=== PATIENT | male | born 1990 | race Caucasian/White ===

== ENCOUNTER 2018-07-16 10:42 | Emergency (ER) | payer OTHER ==
[~2018-07-16] VITALS: Ht 180.3 cm; Wt 93.2 kg
[2018-07-16] MEDS ORDERED: NS 1,000 ML IV ONE (11:15)
[2018-07-16] MEDS ORDERED: KETOROLAC 30 MG/ML VIAL (J1885) IV ONE (11:15)
[2018-07-16 12:01] LABS: BASO % 0.1 % (0.0-1.0); EOS % 0.1 % (0.0-3.0); HEMATOCRIT 45.7 % (42.0-52.0); HEMOGLOBIN 15.8 g/dl (13.5-17.5); LYMPH # 1.5 10^3/uL (1.5-6.5); LYMPH % 19.6 % (24.0-44.0); MEAN CORPUSCULAR HEMOGLOBIN 28.6 pg (27.0-33.0); MEAN CORPUSCULAR HGB CONC 34.6 g/dl (32.0-36.5); MEAN CORPUSCULAR VOLUME 82.8 fl (80.0-96.0); MONO # 0.8 10^3/uL (0.0-0.8); MONO % 9.5 % (0.0-5.0); NEUTROPHILS # 5.5 10^3/uL (1.8-7.7); NEUTROPHILS % 70.4 % (36.0-66.0); PLATELET COUNT, AUTOMATED 206 10^3/uL (150-450); RED BLOOD COUNT 5.52 10^6/uL (4.30-6.10); WHITE BLOOD COUNT 7.9 10^3/uL (4.0-10.0)
--- NOTE | 2018-07-16 12:02 | REP ---
CT ABDOMEN AND PELVIS WITHOUT CONTRAST: 07/16/2018. Clinical history: Left flank pain. Findings: No prior study. Renal stone protocol utilized. CT abdomen: Lung bases are clear. Heart not enlarged. There is no pericardial thickening or effusion. Aorta is normal. The liver, spleen, gallbladder, pancreas, adrenal glands, stomach and the small bowel loops were unremarkable. Kidneys show no stone, hydronephrosis, cyst or solid mass. No perinephric fluid. Ureters unremarkable. The right, transverse colon and flexures are normal. There are a few diverticula in the left colon . There is pericolonic inflammatory change with edema and fluid in the peritoneal gutter adjacent to the left colon from diverticulitis. Inflammatory changes extend for least 11 cm. I do not see definite perforation. There is air within the small diverticula off the colon. No fluid along the right peritoneal gutter. The bones are intact without acute finding in the lumbar, lower thoracic spine or the associated ribs. CT pelvis: The bony sacrum, SI joints, pelvis, hips and ischia were unremarkable. Bladder without wall thickening, mass or stone. No distal ureteral dilatation or stone. The sigmoid and rectum are without any acute finding. I see no pelvic free fluid, adenopathy or mass. Cecum and appendix are normal. There is no ventral or inguinal hernia. Impression: 1. Acute diverticulitis with pericolonic inflammatory change and some fluid in the peritoneal gutter in the left colon for a length of about 11 cm. I do not see definite perforation, abscess or free air. 2. There is no other finding in the abdomen or pelvis. Specifically, no renal, ureteral or bladder stone. No hydronephrosis or hydroureter. Electronically Signed by Louis Poe MD 07/16/2018 05:49 P
[2018-07-16] MEDS ORDERED: MORPHINE 4 MG/ML 1ML VIAL/SYRINGE (J2270) IV ONE (12:30)
[2018-07-16 12:35] LABS: ALBUMIN 4.2 GM/DL (3.2-5.2); ALT/SGPT 20 U/L (12-78); AMYLASE 55 U/L (25-115); BILIRUBIN,DIRECT 0.3 MG/DL (0.0-0.2); BLOOD UREA NITROGEN 9 MG/DL (7-18); CALCIUM LEVEL 9.4 MG/DL (8.5-10.1); CARBON DIOXIDE LEVEL 33 MEQ/L (21-32); CHLORIDE LEVEL 102 MEQ/L (98-107); CREATININE FOR GFR 1.16 MG/DL (0.70-1.30); GLOMERULAR FILTRATION RATE > 60.0 (>60); GLUCOSE, FASTING 101 MG/DL (70-100); LIPASE 64 U/L (73-393); POTASSIUM SERUM 4.4 MEQ/L (3.5-5.1); SODIUM LEVEL 139 MEQ/L (136-145); TOTAL PROTEIN 7.5 GM/DL (6.4-8.2)
[2018-07-16] MEDS ORDERED: ONDA4TAB6 PO (13:40)
[2018-07-16] MEDS ORDERED: CIPR-249 PO (13:40)
[2018-07-16] MEDS ORDERED: FLAG500T PO (13:40)
[2018-07-16] MEDS ORDERED: NORCOTAB PO (13:41)
[2018-07-16 13:43] VITALS: BP 136/79
--- NOTE | 2018-07-16 14:02 | REP ---
SCROTAL ULTRASOUND: 07/16/2018. Clinical history: Left testicular pain. Abdominal pain. CT showed left-sided diverticulitis. Findings: The right testis is 5 x 2.9 x 3.1 cm giving a calculated volume 23.5 mL. It is homogeneous in echotexture and without cyst, mass or calcification. Doppler tracing shows resistive index of 0.64 and normal blood flow. The left testis is 5 x 3.2 x 3.4 cm with a calculated volume of 28.5 mL. It also is homogeneous in echotexture without mass, cyst or calcification. The epididymal head has a CC diameter of 7 mm on the right side. This is an epididymal head cyst 4 x 4 mm. The left epididymal head measures 7 mm in CC diameter without cyst. There are small bilateral hydroceles. The scrotal wall thickness is 3 mm bilaterally. Prominent veins lateral to the left testicle. Impression: 1. Bilateral normal appearing testes with normal blood flow in and around, no torsion. 2. Small bilateral hydroceles. 3. 4 mm epididymal head cyst on the right, none on the left. 4. Small varicocele on the left. Electronically Signed by Louis Poe MD 07/16/2018 05:52 P
--- NOTE | 2018-07-22 19:40 | ED PDOC ---
Post-Departure Follow-Up bryan lopez faxed formal report of ct abd/p for fu Jennifer Méndez MD Jul 22, 2018 19:40
--- NOTE | 2018-07-22 19:44 | ED PDOC ---
Post-Departure Follow-Up ft kodi faxed formal report of scrotal us for fu Jennifer Méndez MD Jul 22, 2018 19:44
== END 2018-07-16 13:59 | disposition home or self-care (01) ==
LOC: M ED 10:42
DX: K57.92 Diverticulitis of intestine, part unspecified, without perforation or abscess without bleeding (principal); N43.3 Hydrocele, unspecified; N50.3 Cyst of epididymis; I86.1 Scrotal varices
CPT/HCPCS: 36415; 74176; 76870; 80048; 80076; 81001; 82150; 83690; 85025; 93976; 96374; 96375; 99284; J1885; J2270

== ENCOUNTER 2020-05-05 06:09 | Day surgery (SDC) | payer OTHER ==
[~2020-05-05] VITALS: Ht 180.3 cm; Wt 99.8 kg
[~2020-05-05 06:09] MED LIST: CIPR-249 PO; CLAR10CA3 PO; FLAG500T PO; HYDR-3715 PO; LIDOCAINE 1% MDV 20ML VIAL SQ PRN; ONDA4TAB6 PO
[2020-05-05] MEDS ORDERED: ceFAZolin SOD 2 GM in IV 1 EA IV ONE (07:00)
[2020-05-05] MEDS ORDERED: LR 1,000 ML IV ONE (07:00)
[2020-05-05] MEDS ORDERED: LIDOCAINE 1% SDV 30ML VIAL As Ordered ONE (07:08)
[2020-05-05] MEDS ORDERED: BUPIVACAINE HCL 0.5% 30 ML VIAL As Ordered ONE (07:11)
[2020-05-05] MEDS ORDERED: LIDOCAINE 2% 100MG/5ML SDV (FOR ANES.) As Ordered ONE (07:21)
[2020-05-05] MEDS ORDERED: propofoL 200 MG/20 ML VIAL As Ordered ONE ×2 (07:21→08:29)
[2020-05-05] MEDS ORDERED: fentaNYL 100 MCG/2 ML INJECTION (J3010) As Ordered ONE (07:22)
[2020-05-05] MEDS ORDERED: MIDAZOLAM INJ 2MG/2ML VIAL (J2250 PER 1MG) As Ordered ONE ×2 (07:22→07:55)
[2020-05-05] MEDS ORDERED: dexameTHASONE 4 MG/ML 1ML VIAL (J1100 PER 1MG) As Ordered ONE (07:23)
[2020-05-05] MEDS ORDERED: KETAMINE HCL 200 MG/20 ML VIAL As Ordered ONE (07:45)
[2020-05-05] MEDS ORDERED: ONDANSETRON 4MG/2ML VIAL As Ordered ONE (08:10)
[2020-05-05] MEDS ORDERED: ACETAMINOPHEN 1000MG 100ML IV BTL (OFIRMEV) (J0131 PER 10MG) As Ordered ONE (08:10)
[2020-05-05] MEDS ORDERED: HYDR-3713 PO (08:37)
[2020-05-05] MEDS ORDERED: KETOROLAC 60MG 2ML VIAL As Ordered ONE (08:39)
[2020-05-05] MEDS ORDERED: PERCOCET 5MG/325MG TAB PO PRN (09:00)
[2020-05-05] MEDS ORDERED: LR 1,000 ML IV SCH (09:00)
[2020-05-05] MEDS ORDERED: METOCLOPRAMIDE INJ 10MG/2ML VIAL (J2765 PER 1) IV PRN (09:00)
[2020-05-05] MEDS ORDERED: ONDANSETRON 4MG/2ML VIAL IV PRN (09:00)
[2020-05-05 09:20] VITALS: BP 133/79
--- NOTE | 2020-05-05 09:42 | RO ---
OPERATIVE NOTE DATE OF OPERATION: 05/05/2020 SURGEON: Iraj Morataya DPM CUTTER OPERATOR BRICK: None. PREOPERATIVE DIAGNOSIS: Left foot bunion. POSTOPERATIVE DIAGNOSIS: Left foot bunion. PROCEDURE: Left foot bunionectomy with 1st metatarsal osteotomy. ANESTHESIA: Monitored anesthesia care, preop injection of 20 mL of 1:1 mix of 1% Lidocaine plain and 0.5% Marcaine plain. ESTIMATED BLOOD LOSS: Minimal. MATERIALS: Arthrex 3.5 headless compression screw; 3-0 and 4-0 Vicryl, 4-0 nylon. INJECTABLES: 1 mL Decadron 4 mg per mL. COMPLICATIONS: None. CONDITION: Stable. SPECIMEN: Suspect gout tophi left foot. INDICATIONS: Carlitos Law is a 29-year-old male who presents to [facility] with complaints of painful bunion left foot. He presents today for surgical correction. The patient, site and side were identified and marked in the preoperative area. Consent was reviewed and obtained. All risks, complications and alternatives to the procedure were explained to the patient in detail, all questions were answered. PROCEDURE: The patient was brought to the operating room and placed on the table in the supine position. Monitored anesthesia care was administered followed by preop injection of 20 mL of 1:1 mix of 1% Lidocaine plain and 0.5% Marcaine plain in left foot. The foot was prepped and draped in normal sterile fashion. Tourniquet was applied to the left ankle, inflated to 250 mmHg. Dorsomedial incision was drawn and carried through with #15 blade. Dissection was carried down to 1st metatarsophalangeal joint capsule. T-capsulotomy was performed exposing the metatarsal head. The medial capsule there was some white tophaceous-like tissue embedded in the capsule adjacent to the bone. Some of this was suctioned off and sent for pathology. Following this a lateral release was performed releasing the adductor tendon lateral capsule. McGlamry elevator was used to release the plantar structures. Following this the medial eminence was resected with sagittal saw and osteotomy was performed of the metatarsal head transposing it laterally. This was fixated with Arthrex 3.5 headless compression screw. Remaining bone edges were resected with sagittal saw and smoothed with rasps. Site was irrigated with normal saline. Capsular repair was performed with 3-0 Vicryl, subcutaneous closure of 4-0 Vicryl and skin closure with 4-0 nylon. 1 mL Decadron was injected. Sterile dressing was applied. Tourniquet was deflated. The patient was sent to PACU with vital signs stable and neurovascular status intact. He will be partial weightbearing and follow up in office in two days.
== END 2020-05-05 09:20 | disposition home or self-care (01) ==
LOC: M SDC 06:09
PROVIDERS: ATTEND Podiatrist Foot & Ankle Surgery
DX: M20.12 Hallux valgus (acquired), left foot (principal); M10.9 Gout, unspecified; Z79.899 Other long term (current) drug therapy
CPT/HCPCS: 28296; 88300; 88304; 97116; C1713; J0131; J0690; J1100; J1885; J2250; J2405; J3010

== ENCOUNTER 2020-08-24 10:01 | Emergency (ER) | payer OTHER ==
[~2020-08-24] VITALS: Ht 180.3 cm; Wt 100.3 kg
[~2020-08-24 10:01] MED LIST changes: +HYDR-3713 PO; -LIDOCAINE 1% MDV 20ML VIAL SQ PRN
[2020-08-24] MEDS ORDERED: MORPHINE 4 MG/ML 1ML VIAL/SYRINGE (J2270) IV ONE (11:30)
[2020-08-24] MEDS ORDERED: NS 1,000 ML IV ONE ×2 (11:30→13:40)
[2020-08-24] MEDS ORDERED: ONDANSETRON 4MG/2ML VIAL IV ONE (11:30)
[2020-08-24 12:00] LABS: BASO % 0.2 % (0.0-1.0); EOS % 0.2 % (0.0-3.0); HEMATOCRIT 60.2 % (42.0-52.0); LYMPH # 0.5 10^3/uL (1.5-5.0); LYMPH % 6.3 % (24.0-44.0); MEAN CORPUSCULAR HEMOGLOBIN 30.3 pg (27.0-33.0); MEAN CORPUSCULAR HGB CONC 33.7 g/dl (32.0-36.5); MONO # 0.4 10^3/uL (0.0-0.8); MONO % 4.4 % (2.0-8.0); NEUTROPHILS # 7.3 10^3/uL (1.5-8.5); NEUTROPHILS % 88.5 % (36.0-66.0); PLATELET COUNT, AUTOMATED 200 10^3/uL (150-450); RED BLOOD COUNT 6.69 10^6/uL (4.30-6.10); WHITE BLOOD COUNT 8.2 10^3/uL (4.0-10.0)
[2020-08-24 12:02] LABS: HEMOGLOBIN 20.3 g/dl (13.5-17.5)
[2020-08-24 12:33] LABS: ALBUMIN 4.6 GM/DL (3.2-5.2); ALT/SGPT 52 U/L (12-78); BILIRUBIN,DIRECT 0.5 MG/DL (0.0-0.2); BILIRUBIN,TOTAL 1.6 MG/DL (0.2-1.0); BLOOD UREA NITROGEN 13 MG/DL (7-18); CALCIUM LEVEL 9.6 MG/DL (8.5-10.1); CARBON DIOXIDE LEVEL 32 MEQ/L (21-32); CHLORIDE LEVEL 104 MEQ/L (98-107); CREATININE FOR GFR 1.22 MG/DL (0.70-1.30); GLOMERULAR FILTRATION RATE > 60.0 (>60); GLUCOSE, FASTING 106 MG/DL (70-100); LIPASE 57 U/L (73-393); POTASSIUM SERUM 4.4 MEQ/L (3.5-5.1); SODIUM LEVEL 140 MEQ/L (136-145); TOTAL PROTEIN 7.7 GM/DL (6.4-8.2)
[2020-08-24] MEDS ORDERED: METOCLOPRAMIDE INJ 10MG/2ML VIAL (J2765 PER 1) IV ONE (13:40)
[2020-08-24] MEDS ORDERED: PANTOPRAZOLE 40MG VIAL (C9113 PER 1) IV ONE (13:40)
[2020-08-24] MEDS ORDERED: ISOVUE-370 76% 100ML VIAL As Ordered ONE (13:40)
[2020-08-24 13:51] LABS: C REACTIVE PROTEIN QUANTITATIV < 0.30 MG/DL (0.00-0.30)
--- NOTE | 2020-08-24 14:06 | REP ---
INDICATION: abd pain, vomiting diarrhea ? IBD. COMPARISON: Comparison CT study July 16, 2018.. TECHNIQUE: Helical scanning was acquired and 4 mm axial images are re-formatted. Coronal and sagittal MPR images were generated and reviewed. The contrast enhancement dose is 100 mL of intravenous Isovue 370. FINDINGS: Preliminary digital sales representative advertising radiograph is unremarkable. The lung bases are clear on axial CT images. Postcontrast images demonstrate normal liver and spleen. No focal liver lesion is seen. No abnormality is noted in the pancreas. Normal adrenal glands are observed bilaterally. The kidneys enhance symmetrically and are morphologically intact. No retroperitoneal mass or adenopathy is seen. The previously noted descending colon diverticulitis changes have resolved. There are scattered descending colonic diverticulosis changes. No area of mural thickening or bowel obstructive lesion is seen. Urinary bladder, seminal vesicles, and prostate are unremarkable. No abdominal wall defect or bony destructive lesion is seen. The appendix is not seen but there is no inflammatory change in the right lower quadrant adjacent to the cecum to suggest appendicitis. IMPRESSION: No acute abnormality. Descending colonic diverticulosis without CT evidence of diverticulitis. Otherwise no acute abnormality. <Electronically signed by Baldev Beach > 08/24/20 [id number]
[2020-08-24 14:09] LABS: ERYTHROCYTE SEDIMENTATION RATE 2 mm/hr (0-15)
[2020-08-24] MEDS ORDERED: ONDA4TAB6 PO (14:37)
[2020-08-24] MEDS ORDERED: OMEP40CA97 PO (14:37)
[2020-08-24] MEDS ORDERED: DICY20TA11 PO (14:37)
[2020-08-24 15:26] VITALS: BP 143/79
== END 2020-08-24 15:35 | disposition home or self-care (01) ==
LOC: M ED 10:01
DX: E86.0 Dehydration (principal); R11.2 Nausea with vomiting, unspecified; R19.7 Diarrhea, unspecified; Z79.899 Other long term (current) drug therapy
CPT/HCPCS: 36415; 74177; 80048; 80076; 81001; 83690; 85025; 85652; 86140; 96361; 96374; 96375; 99284; C9113; J2270; J2405; J2765; Q9967

== ENCOUNTER 2020-10-23 14:21 | Emergency (ER) | payer OTHER ==
[~2020-10-23] VITALS: Ht 180.3 cm; Wt 100.0 kg
[~2020-10-23 14:21] MED LIST changes: +DICY20TA11 PO; +OMEP40CA97 PO
[2020-10-23 15:00] LABS: BASO % 0.3 % (0.0-1.0); EOS % 0.3 % (0.0-3.0); HEMATOCRIT 49.9 % (42.0-52.0); HEMOGLOBIN 17.2 g/dl (13.5-17.5); LYMPH # 1.4 10^3/uL (1.5-5.0); LYMPH % 21.6 % (24.0-44.0); MEAN CORPUSCULAR HEMOGLOBIN 29.8 pg (27.0-33.0); MEAN CORPUSCULAR HGB CONC 34.5 g/dl (32.0-36.5); MEAN CORPUSCULAR VOLUME 86.3 fl (80.0-96.0); MONO # 0.4 10^3/uL (0.0-0.8); MONO % 6.9 % (2.0-8.0); NEUTROPHILS # 4.4 10^3/uL (1.5-8.5); NEUTROPHILS % 70.7 % (36.0-66.0); PLATELET COUNT, AUTOMATED 188 10^3/uL (150-450); RED BLOOD COUNT 5.78 10^6/uL (4.30-6.10); WHITE BLOOD COUNT 6.3 10^3/uL (4.0-10.0)
--- NOTE | 2020-10-23 15:03 | REP ---
INDICATION: CHEST PAIN COMPARISON: None. TECHNIQUE: Portable AP view of the chest FINDINGS: The mediastinum and cardiac silhouette are within normal limits for portable technique. The lung teixeira are clear without acute consolidation, effusion, or pneumothorax. Skeletal structures are intact. IMPRESSION: No acute cardiopulmonary process appreciated. <Electronically signed by Daniel Hi > 10/23/20 0791
[2020-10-23 15:21] LABS: ALBUMIN 4.3 GM/DL (3.2-5.2); BILIRUBIN,DIRECT 0.3 MG/DL (0.0-0.2); BILIRUBIN,TOTAL 0.9 MG/DL (0.2-1.0); TOTAL PROTEIN 7.6 GM/DL (6.4-8.2)
--- NOTE | 2020-10-23 15:29 | ECGEPIP ---
[facility] - ED Test Date: 2020-10-23 Pat Name: OSWALDO LLAMAS Department: Room: - Gender: Male Telegraph Dispatcher: KAUR : 1990 Requested By: Nell Mcneil Order Number: [id number] Reading MD: Nell Mcneil Measurements Intervals Niland Rate: 81 P: 58 IA: 154 QRS: 0 QRSD: 96 T: 17 QT: 360 QTc: 418 Interpretive Statements Normal sinus rhythm irbbb No prior Electronically Signed on 10-23-2020 15:29:09 EDT by Nell Mcneil
[2020-10-23] MEDS ORDERED: ISOVUE-370 76% 100ML VIAL As Ordered ONE (15:31)
--- NOTE | 2020-10-23 16:12 | REP ---
INDICATION: CP COMPARISON: None. TECHNIQUE: Axial contrast enhanced images from the thoracic inlet to the upper abdomen using pulmonary embolus technique with multiplanar re-formations. 75 ml Isovue 370 intravenous contrast material administered without complication. This CT examination was performed using the following dose reduction techniques: Automated exposure control, adjustment of mA and/or kv according to the patient's size, and use of iterative reconstruction technique. FINDINGS: Satisfactory enhancement of the pulmonary vasculature is achieved and no filling defects are identified to suggest pulmonary embolus. Further evaluation of the mediastinum demonstrates normal thoracic aorta, heart and pericardium. The bilateral lung teixeira are well aerated and clear without consolidation pleural effusion or pneumothorax. Tracheobronchial tree is patent. No nodule or mass lesion is identified. No adenopathy noted. Surrounding musculoskeletal structures intact IMPRESSION: No evidence for pulmonary embolus. No acute mediastinal or pleural parenchymal process. <Electronically signed by Daniel Hi > 10/23/20 [id number]
[2020-10-23 20:10] LABS: AMPHETAMINES LEVEL URINE NEGATIVE (NEGATIVE); BARBITURATES URINE NEGATIVE (NEGATIVE); BENZODIAZEPINES URINE NEGATIVE (NEGATIVE); CANNABINOIDS URINE NEGATIVE (NEGATIVE); COCAINE METABOLITE URINE NEGATIVE (NEGATIVE); METHADONE URINE NEGATIVE (NEGATIVE); OPIATES URINE NEGATIVE (NEGATIVE); PHENCYCLIDINE URINE NEGATIVE (NEGATIVE)
[2020-10-23 20:45] VITALS: BP 143/89
[2020-10-23] MEDS ORDERED: SUCRALFATE SUSP 1GM/10ML UD PO ONE (20:50)
[2020-10-23] MEDS ORDERED: OMEP40CA97 PO (20:54)
[2020-10-23] MEDS ORDERED: SUCR1TA PO (20:54)
--- NOTE | 2020-10-24 07:54 | ECGEPIP ---
[facility] - ED Test Date: 2020-10-23 Pat Name: OSWALDO LLAMAS Department: Room: - Gender: Male Central Supply Tech: Yousuf LIVINGSTON : 1990 Requested By: JERRI Rea Order Number: [id number] Reading MD: Nell Mcneil Measurements Intervals Hines Rate: 65 P: 46 IL: 160 QRS: 0 QRSD: 102 T: 2 QT: 390 QTc: 405 Interpretive Statements Normal sinus rhythm irbbb decreased rate 10/23/20 Electronically Signed on 10-24-2020 7:54:30 EDT by Nell Mcneil
== END 2020-10-23 21:07 | disposition home or self-care (01) ==
LOC: M ED 14:21
DX: I10 Essential (primary) hypertension (principal); R07.89 Other chest pain; I45.19 Other right bundle-branch block; Z79.899 Other long term (current) drug therapy
CPT/HCPCS: 71045; 71275; 80047; 80076; 80307; 83690; 84484; 85025; 93005; 93041; 94760; 99285; Q9967

== ENCOUNTER 2021-04-20 12:16 | Emergency (ER) | payer OTHER ==
[~2021-04-20] VITALS: Ht 180.3 cm; Wt 98.7 kg
[~2021-04-20 12:16] MED LIST changes: +OMEP40CA4 PO; -OMEP40CA97 PO; +SUCR1TA PO
[2021-04-20] MEDS ORDERED: HYDR-3363 (12:23)
[2021-04-20] MEDS ORDERED: SERT50TA29 (12:23)
--- OUTSIDE RECORDS SUMMARY | 2021-04-20 12:23 | CCD | Continuity of Care Document ---
Author Carlitos Olvera PA-C Organization Unknown Address [facility] [address] [place] [address] Phone [phone] Care Team Providers Care Welder And Fitter Name Role Phone Iraj Morataya AUTM [phone] [facility] AUTM [phone] Problems Description No Information Available Social History Type Date Description Comments Sex Unknown Allergies, Adverse Reactions, Alerts Active Allergies Criticality Reaction | Severity Comments Date NKDA Unable to assess criticality 08/30/2020 Cold Exposure Unable to assess criticality Hives 08/30/2020 NKFA Unable to assess criticality 08/30/2020 Medications Active Medications SIG Qnty Indications Ordering Provide r Date Citalopram Hydrobromide 20mg Table ts 1/2 Tab Daily For 2 Weeks, Then 1 by mouth every day Thereafter 30tabs F41.9 Anthony Yang MD 01/21/2021 Hydroxyzine HCL 25mg Tablets 1-4 cap by mouth daily at bedtime 120tabs F43.8 Anthony Yang MD Dicyclomine HCL 20mg Tablets Unknown 08/24/2020 Zofran 4mg Tablets Unknown Claritin 10mg Tablets Unknown Melatonin Gummies 2.5mg Chewtabs 12 Gumies For Total Dose Of 30MG hs Unknown History Medications Prazosin HCL 1mg Capsules 1 cap by mouth daily at bedtime 30caps F43.8 Anthony Yang MD 1 - 12/08/2020 Immunizations Description No Information Available Vital Signs Date Vital Result Comment 08/30/2020 2:03pm BP Systolic Sitting 152 mmHg BP Diastolic Sitting 107 mmHg Heart Rate 62 /min Body Temperature 99.3 F Oral Respiratory Rate 18 /min O2 % BldC Oximetry 98 % Weight 219.00 lb Weight 99.338 kg Height 71 inches 5'11" BMI (Body Mass Index) 30.5 kg/m2 BSA (Body Surface Area) 2.19 m2 Results Test Acquired Date Facility Test Result H/L Range Note [facility] Tox[facility]ure Select 13 08/30/2020 Dany bhat Summary Report (Summary) FINAL 1, 2 PDF . 1 {DIAGNOSIS: F43.8~{MEDICATI ONS/DECLARED: DICYCLIMINE~{PRESCRIPTION INFO:~{PRESCRIPTION INFO: 2 TOXASSURE SELECT 13 (MW) Test Result Flag Units NO DRUGS DETECTED. Test Result Flag Units Ref Range Creatinine 132 mg/dL >=20 Declared Medications: The flagging and interpretation on this report are based on the following declared medications. Unexpected results may arise from inaccuracies in the declared medications. Note: The testing scope of this panel does not include following reported medications: Dicyclomine For clinical consultation, please call . Procedures Date Code Description Status 02/28/2021 80736 Office/Outpatient Established Mo d MDM 30-39 Min Completed 01/21/2021 37296 Office/Outpatient Established Mo d MDM 30-39 Min Completed 12/08/2020 79999 Office/Outpatient Established Mo d MDM 30-39 Min Completed 10/19/2020 82317 Psychiatric Diag Eval W/Medical Service Completed 08/30/2020 39406 Preventive Counseling Indiv 45 M in Completed Medical Devices Description No Information Available Encounters Type Date Location Provider Dx Diagnosis Office Visit 02/28/2021 8:40a [facility] Ravinder Cabral PA-C F41.9 Anxiety disorder, unspecified F43.[address] reactions to severe st ress F10.10 Alcohol abuse, uncomplicated Assessments Date Code Description Provider 02/28/2021 F43.8 Other reactions to severe stress Milvia Ken, [facility] 02/28/2021 F41.9 Anxiety disorder, unspecified Ca blank Cabral PA-C 02/28/2021 F10.10 Alcohol abuse, uncomplicated The ignacio Ken, [facility] 02/28/2021 F43.8 Other reactions to severe stress Ravinder Cabral PA-C 02/28/2021 F10.10 Alcohol abuse, uncomplicated Alcides Cabral PA-C 01/21/2021 F41.9 Anxiety disorder, unspecified Ca blank Cabral PA-C 01/21/2021 F43.8 Other reactions to severe stress Ravinder Cabral PA-C 01/21/2021 F10.10 Alcohol abuse, uncomplicated Alcides Cabral PA-C 01/03/2021 F43.8 Other reactions to severe stress Milvia Lampack, [facility] 01/03/2021 F10.10 Alcohol abuse, uncomplicated The ignacio Lampack, [facility] 12/08/2020 F43.8 Other reactions to severe stress Ravinder Cabral PA-C 12/08/2020 F10.10 Alcohol abuse, uncomplicated Alcides Cabral PA-C 12/06/2020 F43.8 Other reactions to severe stress Milvia Lampack, [facility] 12/06/2020 F10.10 Alcohol abuse, uncomplicated The ignacio Lampack, [facility] 11/26/2020 F43.8 Other reactions to severe stress Milvia Lampack, [facility] 11/26/2020 F10.10 Alcohol abuse, uncomplicated The ignacio Lampack, [facility] 10/19/2020 F43.8 Other reactions to severe stress Milvia Lampack, [facility] 10/19/2020 F43.8 Other reactions to severe stress Ravinder Cabral PA-C 10/19/2020 F10.10 Alcohol abuse, uncomplicated The ignacio Lampack, [facility] 10/19/2020 F10.10 Alcohol abuse, uncomplicated Alcides Cabral PA-C 09/27/2020 F43.8 Other reactions to severe stress Milvia Lampack, [facility] 09/27/2020 F10.10 Alcohol abuse, uncomplicated The ignacio Lampack, [facility] 08/30/2020 F43.8 Other reactions to severe stress Mishel Dover, ALBERTO 08/30/2020 F43.8 Other reactions to severe stress Milvia Lampack, [facility] 08/30/2020 F10.10 Alcohol abuse, uncomplicated Mishel Dover, RN 08/30/2020 F10.10 Alcohol abuse, uncomplicated The ignacio Lampmadelyn, [facility] Plan of Treatment Future Appointment(s):* 03/31/2021 9:00 am - [facility]ANIE [facility] * 03/31/2021 8:40 am - Ravinder Cabral PA-C at [facility] Functional Status Description No Information Available Mental Status Description No Information Available Referrals Description No Information Available
--- OUTSIDE RECORDS SUMMARY | 2021-04-20 12:23 | CCD | Continuity of Care Document ---
Author Author Carlitos MONROE [facility] Organization Unknown Address [address] [address] Phone [phone] Care Team Providers Care Wet Silk Hanger Name Role Phone Iraj Morataya AUTM [phone] [facility] AUTM [phone] Problems Description No Information Available Social History [...] . Procedures Date Code Description Status 02/28/2021 85012 Office/Outpatient Established Mo d MDM 30-39 Min Completed 01/21/2021 94957 Office/Outpatient Established Mo d MDM 30-39 Min Completed 12/08/2020 34948 Office/Outpatient Established Mo d MDM 30-39 Min Completed 10/19/2020 71827 Psychiatric Diag Eval W/Medical Service Completed 08/30/2020 51581 Preventive Counseling Indiv 45 M in Completed Medical Devices Description No Information Available Encounters Type Date Location Provider Dx Diagnosis Office Visit 02/28/2021 8:40a [facility] Ravinder Cabral PA-C F41.9 Anxiety disorder, unspecified F43.8 Other reactions to severe st ress F10.10 Alcohol abuse, uncomplicated Assessments Date Code Description Provider 02/28/2021 F43.8 Other reactions to severe stress Milvia Ken [facility] 02/28/2021 F41.9 Anxiety disorder, unspecified Ca blank Cabral PA-C 02/28/2021 F10.10 Alcohol abuse, uncomplicated The ignacio Ken, [facility] 02/28/2021 F43.8 Other reactions to severe stress Ravinder Cabral PA-C 02/28/2021 F10.10 Alcohol abuse, uncomplicated Alcides Cabral PA-C 01/21/2021 F41.9 Anxiety disorder, unspecified Ca blank Cabral PA-C 01/21/2021 F43.8 Other reactions to severe stress Ravinder Cabral PA-C 01/21/2021 F10.10 Alcohol abuse, uncomplicated Alcides Cabral PA-C 01/03/2021 F43.8 Other reactions to severe stress Milvia Lampack, [facility] 01/03/2021 F10.10 Alcohol abuse, uncomplicated The ignacio Lampack, [facility] 12/08/2020 F43.8 Other reactions to severe stress CHARLENE GuadalupeC 12/08/2020 F10.10 Alcohol abuse, uncomplicated CHARLENE MckeonC 12/06/2020 F43.8 Other reactions to severe stress Milvia Lampack, [facility] 12/06/2020 F10.10 Alcohol abuse, uncomplicated The ignacio Lampack, [facility] 11/26/2020 F43.8 Other reactions to severe stress Milvia Lampack, [facility] 11/26/2020 F10.10 Alcohol abuse, uncomplicated The ignacio Lampack, [facility] 10/19/2020 F43.8 Other reactions to severe stress Milvia Lampack, [facility] 10/19/2020 F43.8 Other reactions to severe stress Ravinder Cabral PA-C 10/19/2020 F10.10 Alcohol abuse, uncomplicated The ignacio Lampack, [facility] 10/19/2020 F10.10 Alcohol abuse, uncomplicated Alcides Cabral PA-C 09/27/2020 F43.8 Other reactions to severe stress Milvia Lampack, [facility] 09/27/2020 F10.10 Alcohol abuse, uncomplicated The ignacio Lampack, [facility] 08/30/2020 F43.8 Other reactions to severe stress Mishel Dover, RN 08/30/2020 F43.8 Other reactions to severe stress Milvia Lampack, [facility] 08/30/2020 F10.10 Alcohol abuse, uncomplicated Mishel Dover, RN 08/30/2020 F10.10 Alcohol abuse, uncomplicated The ignacio Lampmadelyn, [facility] Plan of Treatment Future Appointment(s):* 03/31/2021 9:00 am - TIFFANIE [facility] * 03/31/2021 8:40 am - Ravinder Cabral PA-C at [facility] Functional Status Description No Information Available Mental Status Description No Information Available Referrals Description No Information Available
--- OUTSIDE RECORDS SUMMARY | 2021-04-20 12:23 | CCD | Continuity of Care Document ---
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 Social History Type Date Description Comments Sex Unknown ETOH Use Occasionally consumes alcohol Tobacco Use Start: Unknown Patient has never smoked Allergies, Adverse Reactions, Alerts Description No Known Drug Allergies Medications Active Medications SIG Qnty Indications Ordering Provide r Date Diclofenac Sodium 1% Gel apply 1 gram to foot 2-3 times daily 100gm Iraj Paiz DPM 2020 Naproxen 500mg Tablets 1 tab twice daily with food 60tabs Iraj Paiz DPM 10/01/2020 Loratadine Unknown Colchicine Unknown Medications Administered in Office Medication SIG Qnty Indications Ordering Provider Date Inject Triamcinolone Acetonide 10 ML, ND C 8916-4323-29 Injection Iraj caraballo DPM 12/08/2019 Inject Dexamthosone Phosphate 48193-169- 30 Injection Iraj Paiz DPM 020 Immunizations Description No Information Available Vital Signs Date Vital Result Comment 02/09/2020 9:11am Height 71 inches 5'11" Weight 220.00 lb BP Systolic 124 mmHg BP Diastolic 88 mmHg Heart Rate 73 /min BMI (Body Mass Index) 30.7 kg/m2 12/08/2019 9:45am Height 71 inches 5'11" Weight 215.00 lb BP Systolic 140 mmHg BP Diastolic 90 mmHg Heart Rate 63 /min BMI (Body Mass Index) 30.0 kg/m2 Results Description No Information Available Procedures Date Code Description Status 01/18/2021 36575 Office/Outpatient Established Lo w MDM 20-29 Min Completed 01/18/2021 24765 X-Ray Foot Complete Completed 12/06/2020 49598 Office/Outpatient Established SF MDM 10-19 Min Completed 11/05/2020 39132 Office/Outpatient Established SF MDM 10-19 Min Completed 10/01/2020 47579 Office/Outpatient Established Lo w MDM 20-29 Min Completed 10/01/2020 51910 X-Ray Foot Complete Completed Medical Devices Description No Information Available Encounters Type Date Location Provider Dx Diagnosis Office Visit 01/18/2021 10:30a [place] [facility] Iraj Paiz DPM S92.312K Disp fx of 1st metatarsal bone, l ft, subs for fx w nonunion Office Visit 12/06/2020 11:15a [facility] [facility] Iraj Paiz DPM S92.312K Disp fx of 1st metatarsal bone, l ft, subs for fx w nonunion M21.612 Bunion of left foot Office Visit 11/05/2020 11:00a [facility] [facility] Iraj Paiz DPM S92.312K Disp fx of 1st metatarsal bone, l ft, subs for fx w nonunion Office Visit 10/01/2020 11:00a [facility] [facility] Iraj Paiz DPM S92.312K Disp fx of 1st metatarsal bone, l ft, subs for fx w nonunion Office Visit 08/02/2020 10:00a [facility] [facility] Iraj Paiz DPM Z48.89 Encounter for other specified surgical aftercare Assessments Date Code Description Provider 01/18/2021 S92.312K Displaced fracture o f first metatarsal bone, left foot, subsequent encounter for fracture with nonunion Iraj Paiz DPM 12/06/2020 S92.312K Displaced fracture o f first metatarsal bone, left foot, subsequent encounter for fracture with nonunion Iraj Paiz DPM 12/06/2020 M21.612 Bunion of left foot Iraj grimes DPM 11/05/2020 S92.312K Displaced fracture o f first metatarsal bone, left foot, subsequent encounter for fracture with nonunion Iraj Paiz, GENNY 10/01/2020 S92.312K Displaced fracture o f first metatarsal bone, left foot, subsequent encounter for fracture with nonunion Iraj Paiz, GENNY 08/02/2020 Z48.89 Encounter for other specified hernandez rgical aftercare Iraj Paiz DPM Plan of Treatment Future Appointment(s):* 03/22/2021 8:00 am - Iraj Paiz DPM at [place] [facility] Functional Status Description No Information Available Mental Status Description No Information Available Referrals Refer to Dr Reason for Referral Status Appt Date Iraj Paiz DPM PAIN IN LEFT FOOT Created [address] [address] [phone]
--- OUTSIDE RECORDS SUMMARY | 2021-04-20 12:23 | CCD | Continuity of Care Document ---
Author Carlitos Olvera PA-C Organization Unknown Address [facility] [address] [place] [address] Phone [phone] Care Team Providers Care Front Desk Manager Name Role Phone Iraj Morataya AUTM [phone] [facility] AUTM [phone] Problems Description No Information Available Social History [...] Range Note Med[employer] Tox[employer] Select 13 08/30/2020 Dayn bhat Summary Report (Summary) FINAL 1, 2 [...] call . Procedures Date Code Description Status 01/21/2021 65701 Office/Outpatient Established Mo d MDM 30-39 Min Completed 12/08/2020 48128 Office/Outpatient Established Mo d MDM 30-39 Min Completed 10/19/2020 71200 Psychiatric Diag Eval W/Medical Service Completed 08/30/2020 10494 Preventive Counseling Indiv 45 M in Completed Medical Devices Description No Information Available Encounters Type Date Location Provider Dx Diagnosis Office Visit 01/21/2021 9:00a [facility] Ravinder Cabral PA-C F41.9 Anxiety disorder, unspecified F43.[address] reactions to severe st ress F10.10 Alcohol abuse, uncomplicated Assessments Date Code Description Provider 01/21/2021 F41.9 Anxiety disorder, unspecified Ca blank Cabral PA-C 01/21/2021 F43.8 Other reactions to severe stress Ravinder Cabral PA-C 01/21/2021 F10.10 Alcohol abuse, uncomplicated Alcides Cabral PA-C 01/03/2021 F43.8 Other reactions to severe stress Milvia Lampack, [facility] 01/03/2021 F10.10 Alcohol abuse, uncomplicated The ignacio Lampack, [facility] 12/08/2020 F43.8 Other reactions to severe stress Ravinder Cabral PA-C 12/08/2020 F10.10 Alcohol abuse, uncomplicated Alcides Cabral PA-C 12/06/2020 F43.8 Other reactions to severe stress Milvia Lampack, [facility] 12/06/2020 F10.10 Alcohol abuse, uncomplicated The ignacio Lampack, [facility] 11/26/2020 F43.8 Other reactions to severe stress Imlvia Lampack, [facility] 11/26/2020 F10.10 Alcohol abuse, uncomplicated The ignacio Lampack, [facility] 10/19/2020 F43.8 Other reactions to severe stress Milvia Lampack, [facility] 10/19/2020 F43.8 Other reactions to severe stress Ravinder Cabral PA-C 10/19/2020 F10.10 Alcohol abuse, uncomplicated The ignacio Lampmadelyn, [facility] 10/19/2020 F10.10 Alcohol abuse, uncomplicated Alcides Cabral PA-C 09/27/2020 F43.8 Other reactions to severe stress Milvia Lampack, [facility] 09/27/2020 F10.10 Alcohol abuse, uncomplicated The ignacio Lampack, [facility] 08/30/2020 F43.8 Other reactions to severe stress Mishel Dover, RN 08/30/2020 F43.8 Other reactions to severe stress Milvia Lampmadelyn, [facility] 08/30/2020 F10.10 Alcohol abuse, uncomplicated Mishel Dover, RN 08/30/2020 F10.10 Alcohol abuse, uncomplicated The ignacio Lampack, [facility] 08/13/2020 F43.8 Other reactions to severe stress Milvia Lampmadelyn, [facility] 08/13/2020 F10.10 Alcohol abuse, uncomplicated The ignacio Rogers LM Plan of Treatment Future Appointment(s):* 02/28/2021 8:40 am - Ravinder Cabral PA-C at [facility] * 02/01/2021 3:00 pm - TIFFANIE Monroe at [facility] Functional Status Description No Information Available Mental Status Description No Information Available Referrals Description No Information Available
--- OUTSIDE RECORDS SUMMARY | 2021-04-20 12:23 | CCD | Continuity of Care Document ---
Author Author Carlitos WHEATLEY [facility] Organization Unknown Address [address] [address] Phone [phone] Care Team Providers Care Coagulation Operator Name Role Phone Iraj Morataya AUTM [phone] [facility] AUTM [phone] Problems Description No Information Available Social History Type Date Description Comments Sex Unknown Allergies and adverse reactions Active Allergies Criticality Reaction | Severity Comments Date NKDA Unable to assess criticality 08/30/2020 Cold Exposure Unable to assess criticality Hives 08/30/2020 NKFA Unable to assess criticality 08/30/2020 Medications Active Medications SIG Qnty Indications Ordering Provide r Date Sertraline HCL 50mg Tablets 1/2 Tab Daily For 2 Weeks, Then 1 by mouth every day Thereafter 30tabs F41.9 Anthony Yang MD 03/31/2021 Hydroxyzine HCL 25mg Tablets 1-4 cap by mouth daily at bedtime 120tabs F43.8 Anthony Yang MD Dicyclomine HCL 20mg Tablets Unknown 08/24/2020 Zofran 4mg Tablets Unknown Claritin 10mg Tablets Unknown Melatonin Gummies 2.5mg Chewtabs 12 Gumies For Total Dose Of 30MG hs Unknown History Medications Citalopram Hydrobromide 20mg Table ts 1/2 Tab Daily For 2 Weeks, Then 1 by mouth every day Thereafter 30tabs F41.9 Anthony Yang MD 01/21/2021 - 03/31/2021 Prazosin HCL 1mg Capsules 1 cap by mouth daily at bedtime 30caps F43.8 Anthony Yang MD - 12/08/2020 Immunizations Description No Information Available [...] BSA (Body Surface Area) 2.19 m2 Results Description No Information Available Procedures Date Code Description Status 03/31/2021 19019 Office/Outpatient Established Mo d MDM 30-39 Min Completed 02/28/2021 81436 Office/Outpatient Established Mo d MDM 30-39 Min Completed 01/21/2021 18104 Office/Outpatient Established Mo d MDM 30-39 Min Completed 12/08/2020 20322 Office/Outpatient Established Mo d MDM 30-39 Min Completed 10/19/2020 03197 Psychiatric Diag Eval W/Medical Service Completed Medical Devices Description No Information Available Encounters Type Date Location Provider Dx Diagnosis Office Visit 03/31/2021 8:40a [facility] Ravinder Cabral PA-C F41.9 Anxiety disorder, unspecified F10.10 Alcohol abuse, uncomplicated Assessments Date Code Description Provider 03/31/2021 F41.9 Anxiety disorder, unspecified Lindsay Cabral PA-C 03/31/2021 F10.10 Alcohol abuse, uncomplicated Alcides Cabral PA-C 02/28/2021 F43.8 Other reactions to severe stress Milvia Ken [facility] 02/28/2021 F41.9 Anxiety disorder, unspecified Ca blank Cabral PA-C 02/28/2021 F10.10 Alcohol abuse, uncomplicated The ignacio Ken [facility] 02/28/2021 F43.8 Other reactions to severe stress Ravinder Cabral PA-C 02/28/2021 F10.10 Alcohol abuse, uncomplicated Alcides Cabral PA-C 01/21/2021 F41.9 Anxiety disorder, unspecified Ca blank Cabral PA-C 01/21/2021 F43.8 Other reactions to severe stress Ravinder Cabral PA-C 01/21/2021 F10.10 Alcohol abuse, uncomplicated Alcides Cabral PA-C 01/03/2021 F43.8 Other reactions to severe stress Milvia Lampack, [facility] 01/03/2021 F10.10 Alcohol abuse, uncomplicated The ignacio Lampack, [facility] 12/08/2020 F43.8 Other reactions to severe stress Ravinder Cabral PA-C 12/08/2020 F10.10 Alcohol abuse, uncomplicated Alcides Cabral PA-C 12/06/2020 F43.8 Other reactions to severe stress Milvia Lampack, [facility] 12/06/2020 F10.10 Alcohol abuse, uncomplicated The ignacio Lampack, [facility] 11/26/2020 F43.8 Other reactions to severe stress Milvia Lampack, [facility] 11/26/2020 F10.10 Alcohol abuse, uncomplicated The ignacio Lampack, [facility] 10/19/2020 F43.8 Other reactions to severe stress Milvia Lampack, [facility] 10/19/2020 F43.8 Other reactions to severe stress Ravinder Cabral PA-C 10/19/2020 F10.10 Alcohol abuse, uncomplicated The ignacio Lampack, [facility] 10/19/2020 F10.10 Alcohol abuse, uncomplicated Alcides Cabral PA-C Plan of Treatment No Information Available Functional Status Description No Information Available Mental Status Description No Information Available Referrals Description No Information Available
--- OUTSIDE RECORDS SUMMARY | 2021-04-20 12:23 | CCD | Continuity of Care Document ---
Author Carlitos Olvera PA-C Organization Unknown Address [facility] [address] [place] [address] Phone [phone] Care Team Providers Care Vegetable Scullion Name Role Phone Iraj Morataya AUTM [phone] [facility] AUTM [phone] Problems Description No Information Available Social History [...] . Procedures Date Code Description Status 02/28/2021 93840 Office/Outpatient Established Mo d MDM 30-39 Min Completed 01/21/2021 58176 Office/Outpatient Established Mo d MDM 30-39 Min Completed 12/08/2020 78133 Office/Outpatient Established Mo d MDM 30-39 Min Completed 10/19/2020 42249 Psychiatric Diag Eval W/Medical Service Completed 08/30/2020 43656 Preventive Counseling Indiv 45 M in Completed Medical Devices Description No Information Available Encounters Type Date Location Provider Dx Diagnosis Office Visit 02/28/2021 8:40a [facility] Ravinder Cabral PA-C F41.9 Anxiety disorder, unspecified F43.8 Other reactions to severe st ress F10.10 Alcohol abuse, uncomplicated Assessments Date Code Description Provider 02/28/2021 F43.8 Other reactions to severe stress Milvia Ken, [facility] 02/28/2021 F41.9 Anxiety disorder, unspecified Ca blank Cabral PA-C 02/28/2021 F10.10 Alcohol abuse, uncomplicated The ignacio Ken, [facility] 02/28/2021 F43.8 Other reactions to severe stress Ravinder Cabral PA-C 02/28/2021 F10.10 Alcohol abuse, uncomplicated Alcides Cabral PA-C 01/21/2021 F41.9 Anxiety disorder, unspecified Ca blank Cabral PA-C 01/21/2021 F43.8 Other reactions to severe stress Ravinder Cabral PA-C 01/21/2021 F10.10 Alcohol abuse, uncomplicated Alcides Cabral PA-C 01/03/2021 F43.8 Other reactions to severe stress Milvia Lampack, [facility] 01/03/2021 F10.10 Alcohol abuse, uncomplicated The ignacio Lampack, [facility] 12/08/2020 F43.8 Other reactions to severe stress Ravinder Cabral PA-C 12/08/2020 F10.10 Alcohol abuse, uncomplicated Alcides Cabral PA-C 12/06/2020 F43.8 Other reactions to severe stress Milvia Lampack, [facility] 12/06/2020 F10.10 Alcohol abuse, uncomplicated The ignacio Lampack, [facility] 11/26/2020 F43.8 Other reactions to severe stress Milvia Lampack, [facility] 11/26/2020 F10.10 Alcohol abuse, uncomplicated The ignacio Lampack, [facility] 10/19/2020 F43.8 Other reactions to severe stress Milvia Lampack, [facility] 10/19/2020 F43.8 Other reactions to severe stress Ravinder Cabral PA-C 10/19/2020 F10.10 Alcohol abuse, uncomplicated The ignacio Lampack, [facility] 10/19/2020 F10.10 Alcohol abuse, uncomplicated Alcides Cabral PA-C 09/27/2020 F43.8 Other reactions to severe stress Milvia Lampack, [facility] 09/27/2020 F10.10 Alcohol abuse, uncomplicated The ignacio Lampack, [facility] 08/30/2020 F43.8 Other reactions to severe stress Mishel Dover, [facility] 08/30/2020 F43.8 Other reactions to severe stress Milvia Lampack, [facility] 08/30/2020 F10.10 Alcohol abuse, uncomplicated Mishel Dover, RN 08/30/2020 F10.10 Alcohol abuse, uncomplicated The ignacio Lampmadelyn, [facility] Plan of Treatment Future Appointment(s):* 03/31/2021 9:00 am - TIFFANIE Monroe at [facility] * 03/31/2021 8:40 am - Ravinder Cabral PA-C at [facility] Functional Status Description No Information Available Mental Status Description No Information Available Referrals Description No Information Available
--- OUTSIDE RECORDS SUMMARY | 2021-04-20 12:23 | CCD | Continuity of Care Document ---
Author Carlitos Olvera PA-C Organization Unknown Address [facility] [address] [place] [address] Phone [phone] Care Team Providers Care Thread Dresser Name Role Phone Iraj Morataya AUTM [phone] [facility] AUTM [phone] Problems Description No Information Available Social History [...] . Procedures Date Code Description Status 02/28/2021 97927 Office/Outpatient Established Mo d MDM 30-39 Min Completed 01/21/2021 86502 Office/Outpatient Established Mo d MDM 30-39 Min Completed 12/08/2020 60331 Office/Outpatient Established Mo d MDM 30-39 Min Completed 10/19/2020 07591 Psychiatric Diag Eval W/Medical Service Completed 08/30/2020 43184 Preventive Counseling Indiv 45 M in Completed Medical Devices Description No Information Available Encounters Type Date Location Provider Dx Diagnosis Office Visit 02/28/2021 8:40a [facility] Ravinder Cabral PA-C F41.9 Anxiety disorder, unspecified F43.[address] reactions to severe st ress F10.10 Alcohol abuse, uncomplicated Assessments Date Code Description Provider 02/28/2021 F43.8 Other reactions to severe stress Milvia Ken, [facility] 02/28/2021 F41.9 Anxiety [...] Other reactions to severe stress Imlvia Lampack, [facility] 11/26/2020 F10.10 Alcohol abuse, uncomplicated The ignacio Lampack, [facility] 10/19/2020 F43.8 Other reactions to severe stress Milvia Lampack, [facility] 10/19/2020 F43.8 Other reactions to severe stress Ravinder Cabral PA-C 10/19/2020 F10.10 Alcohol abuse, uncomplicated The ignacio Lampack, [facility] 10/19/2020 F10.10 Alcohol abuse, uncomplicated Alcides Cabrla PA-C 09/27/2020 F43.8 Other reactions to severe [...]
--- OUTSIDE RECORDS SUMMARY | 2021-04-20 12:23 | CCD | Continuity of Care Document ---
Author Carlitos Olvera PA-C Organization Unknown Address [facility] [address] [place] [address] Phone [phone] Care Team Providers Care Kitchen Operator Name Role Phone Iraj Morataya AUTM [phone] [facility] AUTM [phone] Problems Description No Information Available Social History [...] Available Procedures Date Code Description Status 03/31/2021 05690 Office/Outpatient Established Mo d MDM 30-39 Min Completed 02/28/2021 59083 Office/Outpatient Established Mo d MDM 30-39 Min Completed 01/21/2021 73235 Office/Outpatient Established Mo d MDM 30-39 Min Completed 12/08/2020 85441 Office/Outpatient Established Mo d MDM 30-39 Min Completed 10/19/2020 56660 Psychiatric Diag Eval W/Medical Service Completed Medical Devices Description No Information Available Encounters Type Date Location Provider Dx Diagnosis Office Visit 03/31/2021 8:40a [facility] Ravinder Cabral PA-C F41.9 Anxiety disorder, unspecified F10.10 Alcohol abuse, uncomplicated Assessments Date Code Description Provider 03/31/2021 F41.9 Anxiety disorder, unspecified Ca blank Cabral PA-C 03/31/2021 F10.10 Alcohol abuse, uncomplicated Alcides Cabral PA-C 02/28/2021 F43.8 Other reactions to severe stress Milvia Ken [facility] 02/28/2021 F41.9 Anxiety disorder, unspecified Ca blank Cabral PA-C 02/28/2021 F10.10 Alcohol abuse, uncomplicated The ignacio Ken [facility] 02/28/2021 F43.8 Other reactions to severe stress Ravinder Cabral PA-C 02/28/2021 F10.10 Alcohol abuse, uncomplicated Alcides Cabral PA-C 01/21/2021 F41.9 Anxiety disorder, unspecified Ca blank Cabral PA-C 01/21/2021 F43.8 Other reactions to severe stress Ravinder Cabral PA-C 01/21/2021 F10.10 Alcohol abuse, uncomplicated Alcides Cabral PA-C 01/03/2021 F43.8 Other reactions to severe stress Milvia Lampack, [facility] 01/03/2021 F10.10 Alcohol abuse, uncomplicated The ignacio Lampack, [facility] 12/08/2020 F43.8 Other reactions to severe stress Ravinder Cabral PA-C 12/08/2020 F10.10 Alcohol abuse, uncomplicated Alcides Cabral PA-C 12/06/2020 F43.8 Other reactions to severe stress Milvia Lampack, [facility] 12/06/2020 F10.10 Alcohol abuse, uncomplicated The ignacio Lampack, [facility] 11/26/2020 F43.8 Other reactions to severe stress Milvia Lampack, [facility] 11/26/2020 F10.10 Alcohol abuse, uncomplicated The ignacio Lampack, [facility] 10/19/2020 F43.8 Other reactions to severe stress Milvia Lampack, [facility] 10/19/2020 F43.8 Other reactions to severe stress Ravinder Cabral PA-C 10/19/2020 F10.10 Alcohol abuse, uncomplicated The ignacio Lampack, [facility] 10/19/2020 F10.10 Alcohol abuse, uncomplicated Alcides Cabral PA-C Plan of Treatment No Information Available Functional Status Description No Information Available Mental Status Description No Information Available Referrals Description No Information Available
--- OUTSIDE RECORDS SUMMARY | 2021-04-20 12:23 | CCD ---
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 Name Role Phone MEDENT_[id number], [phone] Unavailable Unavailable Donovan PAIZ DPM Unavailable Unavailable Donovan PAIZ DPM Unavailable Unavailable Donovan PAIZ DPM Unavailable Unavailable Donovan PAIZ DPM Unavailable Unavailable Donovan PAIZ DPM Unavailable Unavailable Donovan PAIZ DPM Unavailable Unavailable Donovan PAIZ DPM Unavailable Unavailable Donovan PAIZ DPM Unavailable Unavailable Donovan PAIZ DPM Unavailable Unavailable Donovan PAIZ DPM Unavailable Unavailable Donovan PAIZ DPM Unavailable Unavailable Donovan PAIZ DPM Unavailable Unavailable Donovan PAIZ DPM Unavailable Unavailable Donovan PAIZ DPM Unavailable Unavailable Donovan PAIZ DPM Unavailable Unavailable Donovan PAIZ DPM Unavailable Unavailable Donovan PAIZ DPM Unavailable Unavailable Donovan PAIZ DPM Unavailable Unavailable Donovan PAIZ DPM Unavailable Unavailable Donovan PAIZ DPM Unavailable Unavailable Donovan PAIZ DPM Unavailable Unavailable Donovan PAIZ DPM Unavailable Unavailable Donovan PAIZ DPM Unavailable Unavailable Donovan PAIZ DPM Unavailable Unavailable Donovan PAIZ DPM Unavailable Unavailable Donovan PAIZ DPM Unavailable Unavailable Donovan PAIZ DPM Unavailable Unavailable Donovan PAIZ DPM Unavailable Unavailable Donovan PAIZ DPM Unavailable Unavailable Donovan PAIZ DPM Unavailable Unavailable Donovan PAIZ DPM Unavailable Unavailable Donovan PAIZ DPM Unavailable Unavailable CLAY, J YASMIN PA Unavailable Unavailable CLAY, J YASMIN PA Unavailable Unavailable CLAY, J YASMIN PA Unavailable Unavailable CLAY, J YASMIN PA Unavailable Unavailable CLAY, J YASMIN PA Unavailable Unavailable CLAY, J YASMIN PA Unavailable Unavailable CLAY, J YASMIN PA Unavailable Unavailable CLAY, J YASMIN PA Unavailable Unavailable CLAY, J YASMIN PA Unavailable Unavailable CLAY, J YASMIN PA Unavailable Unavailable CLAY, J YASMIN PA Unavailable Unavailable CLAY, J YASMIN PA Unavailable Unavailable CLAY, J YASMIN PA Unavailable Unavailable CLAY, J YASMIN PA Unavailable Unavailable CLAY, J YASMIN PA Unavailable Unavailable CLAY, J YASMIN PA Unavailable Unavailable CLAY, J YASMIN PA Unavailable Unavailable CLAY, J YASMIN PA Unavailable Unavailable CLAY, J YASMIN PA Unavailable Unavailable CLAY, J YASMIN PA Unavailable Unavailable CLAY, J YASMIN PA Unavailable Unavailable CLAY, J YASMIN PA Unavailable Unavailable CLAY, J YASMIN PA Unavailable Unavailable CLAY, J YASMIN PA Unavailable Unavailable CLAY, J YASMIN PA Unavailable Unavailable CLAY, J YASMIN PA Unavailable Unavailable CLAY, J YASMIN PA Unavailable Unavailable JANUSZ FULLER Unavailable Unavailable Dominic Yang MD Unavailable Unavailable Dominic Yang MD Unavailable Unavailable Dominic Yang MD Unavailable Unavailable Dominic Yang MD Unavailable Unavailable Dominic Yang MD Unavailable Unavailable Dominic Yang MD Unavailable Unavailable Dominic Yang MD Unavailable Unavailable Dominic Yang MD Unavailable Unavailable Dominic Yang MD Unavailable Unavailable Dominic Yang MD Unavailable Unavailable Dominic Yang MD Unavailable Unavailable Dominic Yang MD Unavailable Unavailable Dominic Yang MD Unavailable Unavailable Dominic Yang MD Unavailable Unavailable Dominic Yang MD Unavailable Unavailable Dominic Yang MD Unavailable Unavailable Dominic Yang MD Unavailable Unavailable Dominic Yang MD Unavailable Unavailable Dominic Yang MD Unavailable Unavailable Dominic Yang MD Unavailable Unavailable Dominic Yang MD Unavailable Unavailable Dominic Yang MD Unavailable Unavailable AronowitzDominic MD Unavailable Unavailable AroDominic cooper MD Unavailable Unavailable Trey, Dominic Cruz MD Unavailable Unavailable AronoDominic hunter MD Unavailable Unavailable CLAY, J YASMIN PA Unavailable Unavailable CLAY, J YASMIN PA Unavailable Unavailable CLAY, J YASMIN PA Unavailable Unavailable CLAY, J YASMIN PA Unavailable Unavailable CLAY, J YASMIN PA Unavailable Unavailable CLAY, J YASMIN PA Unavailable Unavailable CLAY, J YASMIN PA Unavailable Unavailable CLAY, J YASMIN PA Unavailable Unavailable CLAY, J YASMIN PA Unavailable Unavailable CLAY, J YASMIN PA Unavailable Unavailable CLAY, J YASMIN PA Unavailable Unavailable CLAY, J YASMIN PA Unavailable Unavailable CLAY, J YASMIN PA Unavailable Unavailable CLAY, J YASMIN PA Unavailable Unavailable CLAY, J YASMIN PA Unavailable Unavailable CLAY, J YASMIN PA Unavailable Unavailable CLAY, J YASMIN PA Unavailable Unavailable CLAY, J YASMIN PA Unavailable Unavailable CLAY, J YASMIN PA Unavailable Unavailable CLAY, J YASMIN PA Unavailable Unavailable CLAY, J YASMIN PA Unavailable Unavailable CLAY, J YASMIN PA Unavailable Unavailable CLAY, J YASMIN PA Unavailable Unavailable CLAY, J YASMIN PA Unavailable Unavailable CLAY, J YASMIN PA Unavailable Unavailable CLAY, J YASMIN PA Unavailable Unavailable CLAY, J YASMIN PA Unavailable Unavailable RIANA, SHELLY MENTALLY IMPAIRED TEACHER Unavailable Unavailable RIANA, SHELLY MENTALLY IMPAIRED TEACHER Unavailable Unavailable Re-disclosure Warning The records that you are about to access may contain information from federally-assisted alcohol or drug abuse programs. If such information is present, then the following federally mandated warning applies: This information has been disclosed to you from records protected by federal confidentiality rules (42 CFR part 2). The federal rules prohibit you from making any further disclosure of this information unless further disclosure is expressly permitted by the written consent of the person to whom it pertains or as otherwise permitted by 42 CFR part 2. A general authorization for the release of medical or other information is NOT sufficient for this purpose. The Federal rules restrict any use of the information to criminally investigate or prosecute any alcohol or drug abuse patient.The records that you are about to access may contain highly sensitive health information, the redisclosure of which is protected by Article 27-F of the [facility] Public Health law. If you continue you may have access to information: Regarding HIV / AIDS; Provided by facilities licensed or operated by the [facility] Office of Mental Health; or Provided by the [facility] Office for People With Developmental Disabilities. If such information is present, then the following [facility] mandated warning applies: This information has been disclosed to you from confidential records which are protected by state law. State law prohibits you from making any further disclosure of this information without the specific written consent of the person to whom it pertains, or as otherwise permitted by law. Any unauthorized further disclosure in violation of state law may result in a fine or [place] health [facility] sentence or both. A general authorization for the release of medical or other information is NOT sufficient authorization for further disc losure. Encounters Encounter Providers Location Date Indications Data Source(s ) Outpatient Attender: JANUSZ FULLERReferrer: Anthony hunter MD 03/31/2021 09:07:00 AM EDT - 03/31/2021 09:07:00 AM EDT [facility] Outpatient Attender: YASMIN Tyler: Anthony romo MD 03/31/2021 08:41:00 AM EDT - 03/31/2021 08:41:00 AM EDT [facility] Outpatient Attender: YASMIN PARADA [facility] 03/31 08:40:00 AM EDT [facility] ([facility] Outpatient Attender: YASMIN PARADA 02/28 03:00:00 PM EDT - 02/28/2021 03:00:00 PM EDT [facility] Outpatient Attender: JANUSZ FULLERAttender: YASMIN PARADA 02/28/2021 02:00:00 PM EDT - 02/28/2021 02:00:00 PM EDT [facility] Outpatient Attender: YASMIN PARADA [facility] 02/28 08:40:00 AM EDT [facility] Att[facility]: YASMIN PARADA [facility] 01/21 09:00:00 AM EDT [facility] Attender: YASMIN PARADA 01/21 08:48:00 AM EDT - 01/21/2021 08:48:00 AM EDT [facility] 10:30:00 AM EDT [facility] ([facility] Outpatient Attender: JANUSZ FULLERReferrer: Anthony hunter MD 01/03/2021 02:54:00 PM EDT - 01/03/2021 02:54:00 PM EDT [facility] Outpatient Attender: YASMIN PARADA [facility] 12/08 02:40:00 PM EDT [facility] ([facility] Outpatient Attender: YAMSIN Tyler: Anthony romo MD 12/08/2020 02:34:00 PM EDT - 12/08/2020 02:34:00 PM EDT [facility] 11:15:00 AM EDT [facility] ([facility] Outpatient Attender: JANUSZ FULLERReferrer: Anthony hunter MD 12/06/2020 07:59:00 AM EDT - 12/06/2020 07:59:00 AM EDT [facility] Outpatient Attender: JANUSZ FULLER 2020 10:51:00 AM EDT - 11/26/2020 10:51:00 AM EDT [facility] 11:00:00 AM EDT [facility] ([facility] Outpatient Attender: YASMIN PARADA 10/19 04:04:00 PM EDT - 10/19/2020 04:04:00 PM EDT [facility] Outpatient Attender: JANUSZ FULLERAtt codey: YASMIN Lebronerrer: Anthony Yang MD 10/19/2020 10:02:00 AM EDT - 10/19/2020 10:02:00 AM EDT [facility] Outpatient Attender: SAMUEL PAIZ DPM [place] 11/2020 11:00:00 AM EDT [facility] ([facility] Outpatient Attender: JANUSZ PATYJOSH 2020 08:52:00 AM EDT - 09/27/2020 08:52:00 AM EDT [facility] Outpatient Attender: [id number] [id number] 08/30/2020 02:00:00 PM EDT [facility] ([facility] Outpatient Attender: YASMIN PARADA 08/30 01:59:00 PM EDT - 08/30/2020 01:59:00 PM EDT [facility] Outpatient Attender: JANUSZ FULLERAttender: YASMIN PARADA 08/30/2020 12:54:00 PM EDT - 08/30/2020 12:54:00 PM EDT [facility] Outpatient Attender: JANUSZSA FULLER 2020 08:52:00 AM EDT - 08/13/2020 08:52:00 AM T [facility] Office Visit Attender: SAMUEL PAIZ DPM [place] 12/2020 09:00:00 AM EST [facility] ([facility] Outpatient Attender: SHELLY MAYERS LMSWAttender: JANUSZ SENA 07/22/2020 12:57:00 PM EST - 07/22/2020 12:57:00 PM EST [facility] Office Visit Attender: SAMUEL PAIZ DPM [place] 05/29 09:00:00 AM EST [facility] ([facility] Office Visit Attender: SAMUEL PAIZ DPM [place] 04/28 09:00:00 AM EST [facility] ([facility] Office Visit Attender: SAMUEL PAIZ [facility] [place] 04/27 09:00:00 AM EST [facility] ([facility] Immunizations Vaccine Date Status Description Data Source(s) COVID-19 VACCINE Pfizer 07/01/2020 12:00:00 AM EST completed [facility] Vaccine Series Complete: NOThis Data was Submitted to [facility] Via [employer]. Medications Medication Brand Name Start Date Product Form Dose Route Admi nistrative Instructions Pharmacy Instructions Status Indications Reaction Description Data Source(s) Sertraline 50 MG Oral Tablet Sertraline HCL 03/31/2021 12:00:00 AM EDT ORAL active [facility] ([facility]) Citalopram 20 MG Oral Tablet Citalopram Hydrobromide 01/21/2021 12:00:00 AM EDT ORAL completed [facility] ([facility]) Hydroxyzine Hydrochloride 25 MG Oral Tablet Hydroxyzine HCL 12/08/2020 12:00:00 AM EDT ORAL active [facility] ([facility]) Diclofenac Sodium 0.01 MG/MG Topical Gel Diclofenac Sodium 11/05/2020 12:00:00 AM EDT active [facility] ([facility] Prazosin 1 MG Oral Capsule Prazosin HCL 10/19/2020 12:00:00 AM EDT ORAL completed [facility] ([facility]) Naproxen 500 MG Oral Tablet Naproxen 10/01/2020 12:00:00 AM EDT active [facility] ([facility] Dicyclomine Hydrochloride 20 MG Oral Tablet Dicyclomine HCL 08/24/2020 12:00:00 AM EDT active [facility] ([facility]) Acetaminophen 325 MG / Hydrocodone Bitartrate 5 MG Ora l Tablet Hydrocodone Bitartrate/Acetaminophen 05/05/2020 12:00:00 AM EST completed [facility] ([facility]) Insurance Providers Payer name Policy type / Coverage type Policy ID Covered libertarian ID Covered libertarian's relationship to bardales Policy Bardales Plan Information [facility] [id number] 18 [id number] [facility] [place] [id number] 18 [id number] [facility] ACTIVE DUTY [id number] SP [id number] [facility] ACTIVE DUTY [id number] SP [id number] Problems, Conditions, and Diagnoses Code Display Name Description Problem Type Effective Dates Data Source(s) F1010 Alcohol abuse, uncomplicated Alcohol abuse, uncomplica danette Diagnosis 03/31/2021 09:07:00 AM EDT [facility] F419 Anxiety disorder, unspecified Anxiety disorder, unspec ified Diagnosis 03/31/2021 09:07:00 AM EDT [facility] F438 Other reactions to severe stress Other reactions to severe stress Diagnosis 02/28/2021 02:00:00 PM EDT [facility] 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 Problem 10/07/2020 12:00:00 AM EDT [facility] ([facility] [id number] 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 P ain due to internal prosthetic device Problem 04/20/2020 12:00:00 AM EST [facility] ([facility] Surgeries/Procedures Procedure Description Date Indications Data Source(s) OFFICE OUTPATIENT VISIT 25 MINUTES 03/31/2021 12:00:00 AM EDT [facility] ([facility]) OFFICE OUTPATIENT VISIT 25 MINUTES 02/28/2021 12:00:00 AM EDT [facility] ([facility]) OFFICE OUTPATIENT VISIT 25 MINUTES 01/21/2021 12:00:00 AM EDT [facility] ([facility]) RADEX FOOT COMPLETE MINIMUM 3 VIEWS 01/18/2021 12:00:0 0 AM EDT [facility] OFFICE OUTPATIENT VISIT 15 MINUTES 01/18/2021 12:00:00 AM EDT [facility] ([facility] OFFICE OUTPATIENT VISIT 25 MINUTES 12/08/2020 12:00:00 AM EDT [facility] ([facility]) OFFICE OUTPATIENT VISIT 10 MINUTES 12/06/2020 12:00:00 AM EDT [facility] ([facility] OFFICE OUTPATIENT VISIT 10 MINUTES 11/05/2020 12:00:00 AM EDT [facility] ([facility] Psychiatric Diag Eval W/Medical Service 10/19/2020 12: 00:00 AM EDT [facility] ([facility]) RADEX FOOT COMPLETE MINIMUM 3 VIEWS 10/01/2020 12:00:0 0 AM EDT [facility] ([facility] OFFICE OUTPATIENT VISIT 15 MINUTES 10/01/2020 12:00:00 AM EDT [facility] ([facility] PREVENT MED PROGRAMMER ANALYST HEALTH IT&/RISK FACTOR REDJ SPX 45 MIN 08/30 12:00:00 AM EDT [facility] ([facility]) Psychiatric Diagnostic Evaluation 07/22/2020 12:00:00 AM EST [facility] ([facility]) RADEX FOOT COMPLETE MINIMUM 3 VIEWS 06/21/2020 12:00:0 0 AM EST [facility] RADEX FOOT COMPLETE MINIMUM 3 VIEWS 05/24/2020 12:00:0 0 AM EST [facility] ([facility] Hallux Valgus Correction W/Metatarsal Ostetomy (Aby Mclain) 05/05/2020 12:00:00 AM EST [facility] Results ID Date Data Source [id number] 08/30/2020 02:53:00 PM EDT [facility] ([facility]) Name Value Range Interpretation Code Description Data Marija rce(s) Supporting Document(s) PDF Laboratory test result [facility] ([facility]) {DIAGNOSIS: F43.8~{MEDICATIONS/DECLARED : DICYCLIMINE~{PRESCRIPTION INFO:~{PRESCRIPTION INFO: Laboratory test finding (navigational concept) Laboratory test result [facility] ([facility]) {DIAGNOSIS: F43.8~{MEDICATIONS/DECLARED : DICYCLIMINE~{PRESCRIPTION INFO:~{PRESCRIPTION INFO: ID Date Data Source [id number] 09/04/2020 11:54:00 AM EDT [facility] Name Value Range Interpretation Code Description Data Marija rce(s) Supporting Document(s) Drugs identified in Urine FINAL [facility] TOXASSURE SELECT 13 (MW) Test Result Flag Units NO DRUGS DETECTED. Elina t Result Flag Units Ref Range Creatinine 132 mg/dL > =20 Declared Medications: The flagging and interpretation on this report are based on the following declared medications. Unexpected results may arise from inaccuracies in the declared medications. Note: The testing scope of this panel does not include following reported medications: Dicyclomine For clinical consultation, please call . Report . [facility] ID Date Data Source [id number] 05/05/2020 08:27:00 AM EST [facility] ([facility] Name Value Range Interpretation Code Description Data Marija rce(s) Supporting Document(s) Surgical pathology study Laboratory test result [facility] ([facility] FINAL DIAGNOSIS A - Left foot, soft tissue, biopsy: Amorphous debris and surrounding bursal tissue. Many needle shaped crystals are noted, on polarized light microscopy, consistent with urate/uric acid crystals. 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 B - Left foot, bone, excision: Portion of bone. Gross only. 05/07/2020 - 1245 CLINICAL DIAGNOSIS Hallux valgus 05/05/20201419 GROSS DIAGNOSIS A - Received in formalin labeled "suspected gout tophi, left foot" is a 1 x 0.6 x 0.4 cm. aggregate of white and chalky tissue fragments. All in one. Touch prep slides are prepared and the rest of the tissue is submitted all in one. B - Received in formalin labeled "left foot bone" is a 2 x 2 x 0.6 cm. aggregate of bone fragments. For gross only. - 05/05/2020 - 1419 Signed Sandra Ortega MD 05/07/2020 1251 Procedure Social History No Information Vital Signs ID Date Data Source UNK Name Value Range Interpretation Code Description Data Source(s) Body surface area Derived from formula 2.19 m2 2.19 m2 [facility] ([facility]) Body weight 99.338 kg 99.338 kg [facility] ([facility]) Body height 71 [in_i] 71 [in_i] [facility] ([facility]) 5'11" Body mass index (BMI) [Ratio] 30.5 kg/m2 30.5 k g/m2 [facility] ([facility]) Systolic blood pressure--sitting 152 mm[Hg] 152 mm[Hg] [facility] ([facility]) Diastolic blood pressure--sitting 107 mm[Hg] 10 7 mm[Hg] [facility] ([facility]) Heart rate 62 /min 62 /min [facility] ([facility]) Body temperature 99.3 [degF] 99.3 [degF] [facility] ([facility]) Oral Respiratory rate 18 /min 18 /min [facility] ( [facility]) Oxygen saturation in Arterial blood by Pulse oximetry 98 % 98 % [facility] ([facility]) Body weight 219.00 [lb_av] 219.00 [lb_av] [facility] ([facility])
[2021-04-20] MEDS ORDERED: LIDOCAINE 1% MDV 20ML VIAL SC ONE (14:25)
--- OUTSIDE RECORDS SUMMARY | 2021-04-20 14:27 | CCD ---
Author Author [facility] Organization [facility] Address Unknown Phone Unavailable Care Team Providers Care Process Area Supervisor Name Role Phone [id number], [phone] Unavailable Unavailable Donovan PAIZ DPM Unavailable Unavailable [...] Unavailable Unavailable Dominic Yang MD Unavailable Unavailable Aronowitz, Dominic Cruz MD Unavailable Unavailable Aronocinthiatz, Dominic Cruz MD Unavailable Unavailable Aronodale, Dominic Cruz MD Unavailable Unavailable Aronowicristiana, Dominic Cruz MD Unavailable Unavailable CLAY, J YASMIN PA [...] J YASMIN PA Unavailable Unavailable RIANA, SHELLY CSR RETAIL Unavailable Unavailable RIANA, SHELLY CSR RETAIL Unavailable Unavailable Re-disclosure Warning The records that [...] is protected by Article 27-F of the [facility] Public Health law. If you continue you may have access to information: Regarding HIV / AIDS; Provided by facilities licensed or operated by the [facility] Office of Mental Health; or Provided by the [facility] Office for People With Developmental Disabilities. If such information is present, then the following [facility] mandated warning applies: This information has [...] law may result in a fine or detention sentence or both. A general authorization for the release of medical or other information is NOT sufficient authorization for further disc losure. Encounters Encounter Providers Location Date Indications Data Source(s ) Outpatient Attender: JANUSZ FULLERReferrer: Anthony hunter MD 03/31/2021 09:07:00 AM EDT - 03/31/2021 09:07:00 AM EDT [facility] Outpatient Attender: YASMIN Tyler: Anthony romo MD 03/31/2021 08:41:00 AM EDT - 03/31/2021 08:41:00 AM EDT [facility] Outpatient Attender: YASMIN PARADA [facility] 03/31 08:40:00 AM EDT [facility] Outpatient Attender: YASMIN PARADA 02/28 03:00:00 PM EDT - 02/28/2021 03:00:00 PM EDT [facility] Outpatient Attender: JANUSZ FULLERAttender: YASMIN PARADA 02/28/2021 02:00:00 PM EDT - 02/28/2021 02:00:00 PM EDT [facility] Outpatient Attender: YASMIN PARADA [facility] 02/28 08:40:00 AM EDT [facility] Att[facility]: YASMIN PARADA [facility] 01/21 09:00:00 AM EDT [facility] Attender: YASMIN PARADA 01/21 08:48:00 AM EDT - 01/21/2021 08:48:00 AM EDT [facility] Outpatient Attender: SAMUEL PAIZ [facility] 12/27 10:30:00 AM EDT [facility] ([facility] Outpatient Attender: JANUSZ FULLERReferrer: Anthony hunter MD 01/03/2021 02:54:00 PM EDT - 01/03/2021 02:54:00 PM EDT [facility] Outpatient Attender: YASMIN [facility] 12/08 02:40:00 PM EDT [facility] ([facility] Outpatient Attender: YASMIN Tyler: Anthony romo MD 12/08/2020 02:34:00 PM EDT - 12/08/2020 02:34:00 PM EDT [facility] Outpatient Attender: SAMUEL PAIZ [facility] 11/25 11:15:00 AM EDT [facility] ([facility] Outpatient Attender: JANUSZ FULLERReferrer: Anthony hunter MD 12/06/2020 07:59:00 AM EDT - 12/06/2020 07:59:00 AM EDT [facility] Outpatient Attender: JANUSZ FULLER 2020 10:51:00 AM EDT - 11/26/2020 10:51:00 AM EDT [facility] Outpatient Attender: SAMUEL PAIZ [facility] 10/26 11:00:00 AM EDT [facility] ([facility] Outpatient Attender: YASMIN PARADA 10/19 04:04:00 PM EDT - 10/19/2020 04:04:00 PM EDT [facility] Outpatient Attender: JANUSZ FULLERAtt codey: YASMIN Lebronerrer: Anthony Yang MD 10/19/2020 10:02:00 AM EDT - 10/19/2020 10:02:00 AM EDT [facility] Outpatient Attender: SAMUEL PAIZ D[facility] [place] [facility] 11/2020 11:00:00 AM EDT [facility] ([facility] Outpatient Attender: JANUSZ FULLER 2020 08:52:00 AM EDT - 09/27/2020 08:52:00 AM EDT [facility] Outpatient Attender: [id number] [id number] [facility] 08/30/2020 02:00:00 PM EDT [facility] ([facility] Outpatient Attender: YASMIN PARADA 08/30 01:59:00 PM EDT - 08/30/2020 01:59:00 PM EDT [facility] Outpatient Attender: JANUSZ FULLERAttender: YASMIN PARADA 08/30/2020 12:54:00 PM EDT - 08/30/2020 12:54:00 PM EDT [facility] Outpatient Attender: JANUSZ FULLER 2020 08:52:00 AM EDT - 08/13/2020 08:52:00 AM T [facility] Office Visit Attender: SAMUEL PAIZ D[facility] [place] [facility] 12/2020 09:00:00 AM EST [facility] ([facility] Outpatient Attender: SHELLY MAYERS LMSWAttender: JANUSZ SENA 07/22/2020 12:57:00 PM EST - 07/22/2020 12:57:00 PM EST [facility] 09:00:00 AM EST [facility] ([facility] Office Visit Attender: SAMUEL PAIZ DPM [place] [facility] 04/28 09:00:00 AM EST [facility] ([facility] Office Visit Attender: SAMUEL PAIZ [facility] [place] [facility] 04/27 09:00:00 AM EST [facility] ([facility] Immunizations Vaccine Date Status Description Data Source(s) COVID-19 VACCINE Pfizer 07/01/2020 12:00:00 AM EST completed [facility] Vaccine Series Complete: NOThis Data was Submitted to [facility] Via [employer]. Medications Medication Brand Name Start Date Product Form Dose Route Admi nistrative Instructions Pharmacy Instructions Status Indications Reaction Description Data Source(s) Sertraline 50 MG Oral Tablet Sertraline HCL 03/31/2021 12:00:00 AM EDT ORAL active [facility] ([facility]) Citalopram 20 MG Oral Tablet Citalopram Hydrobromide 01/21/2021 12:00:00 AM EDT ORAL completed [facility] ([facility]) Hydroxyzine Hydrochloride 25 MG Oral Tablet Hydroxyzine HCL 12/08/2020 12:00:00 AM EDT ORAL active [facility] ([facility]) Diclofenac Sodium 0.01 MG/MG Topical Gel Diclofenac Sodium 11/05/2020 12:00:00 AM EDT active [facility] ([facility] Prazosin 1 MG Oral Capsule Prazosin HCL 10/19/2020 12:00:00 AM EDT ORAL completed [facility] ([facility]) Naproxen 500 MG Oral Tablet Naproxen 10/01/2020 12:00:00 AM EDT active [facility] Dicyclomine Hydrochloride 20 MG Oral Tablet Dicyclomine HCL 08/24/2020 12:00:00 AM EDT active [facility] ([facility]) Acetaminophen 325 MG / Hydrocodone Bitartrate 5 MG Ora l Tablet Hydrocodone Bitartrate/Acetaminophen 05/05/2020 12:00:00 AM EST completed [facility] ([facility]) Insurance Providers Payer name Policy type / Coverage type Policy ID Covered green party ID Covered green party's relationship to bardales Policy Bardales Plan Information [facility] ACTIVE DUT[place] [id number] [facility] [place] [id number] 18 [id number] [facility] [place] [id number] 18 [id number] [facility] ACT[employer] DUTY [id number] SP [id number] Problems, Conditions, and Diagnoses Code Display Name Description Problem Type Effective Dates Data Source(s) F1010 Alcohol abuse, uncomplicated Alcohol abuse, uncomplica danette Diagnosis 03/31/2021 09:07:00 AM EDT [facility] F419 Anxiety disorder, unspecified Anxiety disorder, unspec ified Diagnosis 03/31/2021 09:07:00 AM EDT [facility] F438 Other reactions to severe stress Other reactions to severe stress Diagnosis 02/28/2021 02:00:00 PM EDT [facility] 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 Problem 10/07/2020 12:00:00 AM EDT [facility] ([facility] [id number] 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 P ain due to internal prosthetic device Problem 04/20/2020 12:00:00 AM EST [facility] Surgeries/Procedures Procedure Description Date Indications Data Source(s) OFFICE OUTPATIENT VISIT 25 MINUTES 03/31/2021 12:00:00 AM EDT [facility] ([facility]) OFFICE OUTPATIENT VISIT 25 MINUTES 02/28/2021 12:00:00 AM EDT [facility] ([facility]) OFFICE OUTPATIENT VISIT 25 MINUTES 01/21/2021 12:00:00 AM EDT [facility] ([facility]) RADEX FOOT COMPLETE MINIMUM 3 VIEWS 01/18/2021 12:00:0 0 AM EDT [facility] OFFICE OUTPATIENT VISIT 15 MINUTES 01/18/2021 12:00:00 AM EDT [facility] ([facility] OFFICE OUTPATIENT VISIT 25 MINUTES 12/08/2020 12:00:00 AM EDT [facility] ([facility]) OFFICE OUTPATIENT VISIT 10 MINUTES 12/06/2020 12:00:00 AM EDT [facility] ([facility] OFFICE OUTPATIENT VISIT 10 MINUTES 11/05/2020 12:00:00 AM EDT [facility] ([facility] Psychiatric Diag Eval W/Medical Service 10/19/2020 12: 00:00 AM EDT [facility] ([facility]) RADEX FOOT COMPLETE MINIMUM 3 VIEWS 10/01/2020 12:00:0 0 AM EDT [facility] ([facility] OFFICE OUTPATIENT VISIT 15 MINUTES 10/01/2020 12:00:00 AM EDT [facility] ([facility] PREVENT MED PROCESS IMPROVEMENT MANAGER&/RISK FACTOR REDJ SPX 45 MIN 08/30 12:00:00 AM EDT [facility] ([facility]) Psychiatric Diagnostic Evaluation 07/22/2020 12:00:00 AM EST [facility] ([facility]) RADEX FOOT COMPLETE MINIMUM 3 VIEWS 06/21/2020 12:00:0 0 AM EST [facility] ([facility] RADEX FOOT COMPLETE MINIMUM 3 VIEWS 05/24/2020 12:00:0 0 AM EST [facility] ([facility] Hallux Valgus Correction W/Metatarsal Ostetomy (Aby Mclain) 05/05/2020 12:00:00 AM EST [facility] ([facility] Results ID Date Data Source [id number] 08/30/2020 02:53:00 PM EDT [facility] ([facility]) Name Value Range Interpretation Code Description Data Marija rce(s) Supporting Document(s) PDF Laboratory test result [facility] ([facility]) {DIAGNOSIS: F43.8~{MEDICATIONS/DECLARED : DICYCLIMINE~{PRESCRIPTION INFO:~{PRESCRIPTION INFO: Laboratory test finding (navigational concept) Laboratory test result [facility] ([facility]) {DIAGNOSIS: F43.8~{MEDICATIONS/DECLARED : DICYCLIMINE~{PRESCRIPTION INFO:~{PRESCRIPTION INFO: ID Date Data Source [id number] 09/04/2020 11:54:00 AM EDT [facility] Name Value Range Interpretation Code Description Data Marija rce(s) Supporting Document(s) Drugs identified in Urine FINAL [facility] TOXASSURE SELECT 13 (MW) Test Result Flag [...] clinical consultation, please call . Report . [facility] ID Date Data Source [id number] 05/05/2020 08:27:00 AM EST [facility] ([facility] [...] 05/07/2020 - 1245 CLINICAL DIAGNOSIS Hallux valgus 05/05/2020 - 1419 GROSS DIAGNOSIS A - Received in formalin [...] Range Interpretation Code Description Data Source(s) Body weight 99.338 kg 99.338 kg [facility] ([facility]) Body height 71 [in_i] 71 [in_i] [facility] ([facility]) 5'11" Body mass index (BMI) [Ratio] 30.5 kg/m2 30.5 k g/m2 [facility] ([facility]) Systolic blood pressure--sitting 152 mm[Hg] 152 mm[Hg] [facility] ([facility]) Body surface area Derived from formula 2.19 m2 2.19 m2 [facility] ([facility]) Body temperature 99.3 [degF] 99.3 [degF] [facility] ([facility]) Oral Diastolic blood pressure--sitting 107 mm[Hg] 10 7 mm[Hg] [facility] ([facility]) Heart rate 62 /min 62 /min [facility] ([facility]) Respiratory rate 18 /min 18 /min [facility] ( [facility]) Body weight 219.00 [lb_av] 219.00 [lb_av] [facility] T ([facility]) Oxygen saturation in Arterial blood by Pulse oximetry 98 % 98 % [facility] ([facility])
--- NOTE | 2021-04-20 15:13 | REP ---
INDICATION: fall, dizziness, near syncope. COMPARISON: None. TECHNIQUE: 5 mm contiguous transaxial sections were obtained from the skull base to the cerebral convexities. FINDINGS: The ventricles and sulci are consistent with the patient's age. There are no extra-axial fluid collections. There is no mass effect. The deep cerebral white matter is consistent with the patient's age. The orbital and petrous structures, cerebellopontine angles, and posterior fossa are unremarkable. The sella turcica, cavernous, and paracavernous structures are essentially unremarkable. The visualized portions of the paranasal sinuses and mastoid air cells are clear. Images of the skull base show no gross abnormality. IMPRESSION: Unremarkable CT examination of the brain. <Electronically signed by Ramin Jones > 04/20/21 [id number]
--- NOTE | 2021-04-20 15:18 | REP ---
INDICATION: fall neck pain. COMPARISON: None. TECHNIQUE: 2 x 2 mm increments using helical technique and reconstructed in both sagittal and coronal planes. FINDINGS: Vertebral body height and alignment is within normal limits. There is chronic discogenic change seen at C5-6. The facet joints are well aligned bilaterally. There is no evidence of an acute fracture, dislocation, or subluxation. There is no evidence of abnormal paraspinal soft tissue swelling. 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 IMPRESSION: No acute osseous abnormality <Electronically signed by Ramin Jones > 04/20/21 5412
[2021-04-20] MEDS ORDERED: AUGM875T28 PO (16:20)
[2021-04-20] MEDS ORDERED: ACETAMINOPHEN 325 MG TAB PO ONE (16:25)
[2021-04-20 16:57] VITALS: BP 163/89
== END 2021-04-20 16:58 | disposition home or self-care (01) ==
LOC: M ED 12:16
DX: S01.511A Laceration without foreign body of lip, initial encounter (principal); S09.90XA Unspecified injury of head, initial encounter; S16.1XXA Strain of muscle, fascia and tendon at neck level, initial encounter; W01.198A Fall on same level from slipping, tripping and stumbling with subsequent striking against other object, initial encounter; Y92.099 Unspecified place in other non-institutional residence as the place of occurrence of the external cause; Y93.89 Activity, other specified; Y99.9 Unspecified external cause status; R93.7 Abnormal findings on diagnostic imaging of other parts of musculoskeletal system